=== PATIENT | female | born 1985 | race Caucasian/White ===

== ENCOUNTER → 2017-05-10 | Outpatient (CLI) | payer BC, MEDICAID ==
[~2017-05-10] MED LIST: ADVI200T PO; ANUS2.5C2 TOP; DOCU10ELUD PO; MOM30SS PO; OMEP20CA3 PO; PERCOCET PO; PRENTAB9 PO; VICO5TAB
--- NOTE | 2017-05-11 06:51 | REP ---
Clinical: Dating and viability. Technique: First trimester transabdominal obstetrical ultrasound with color Doppler evaluation. Findings: Single live early intrauterine is appreciated. Gestational sac with yolk sac and pole identified. [place]-rump length of 18 mm corresponds to 8 weeks 2 days gestational age with estimated date of delivery 12/18/2017 . heart rate equals 168 beats per minute. No gross abnormalities are identified. A small subchorionic hemorrhage is identified to the right of the gestational sac measuring 25 x 17 x 23 mm. Impression: Single live early intrauterine at 8 weeks 2 days gestational age. Complete anatomical assessment should be performed and 19-20 weeks. Small subchorionic hemorrhage. Signed by Mark Clement MD 05/11/2017 06:43 A
== END ==
LOC: M RAD 09:43
PROVIDERS: ATTEND Obstetrics & Gynecology
DX: Z36 Encounter for antenatal screening of mother (principal)

== ENCOUNTER → 2017-06-16 | Outpatient (REF) | payer BC, MEDICAID | LOC: M LAB REF 14:00 | PROVIDERS: ATTEND Advanced Practice Midwife | DX: R30.0 Dysuria (principal) ==

== ENCOUNTER 2017-07-24 11:59 | Emergency (ER) | payer BC, MEDICAID ==
[~2017-07-24] VITALS: Ht 154.9 cm; Wt 149.1 kg
[~2017-07-24 11:59] MED LIST changes: -OMEP20CA3 PO
[2017-07-24] MEDS ORDERED: NS 1,000 ML IV ONE (13:00)
[2017-07-24 13:27] LABS: BASO % 0.3 % (0.0-1.0); EOS # 0.1 10^3/uL (0.0-0.50); EOS % 1.3 % (0.0-3.0); IMMATURE GRANULOCYTE % 0.3 % (0-0); LYMPH # 1.6 10^3/uL (1.5-4.5); LYMPH % 16.2 % (24.0-44.0); MEAN CORPUSCULAR HGB CONC 32.1 g/dl (32.0-36.5); MEAN CORPUSCULAR VOLUME 84.1 fl (80.0-96.0); MONO # 0.7 10^3/uL (0.0-0.8); MONO % 7.5 % (0.0-5.0); NEUTROPHILS # 7.3 10^3/uL (1.8-7.7); NEUTROPHILS % 74.4 % (36.0-66.0); PLATELET COUNT, AUTOMATED 276 10^3/uL (150-450); RED CELL DISTRIBUTION WIDTH 14.2 % (11.5-14.5); WHITE BLOOD COUNT 9.8 10^3/uL (4.0-10.0)
[2017-07-24 13:36] LABS: INR 0.9
--- NOTE | 2017-07-24 14:21 | REP ---
LEFT LOWER EXTREMITY DUPLEX VEINS: HISTORY: Calf pain. There are no filling defects in the deep venous system. The deep venous system is patient. IMPRESSION: There is no deep venous thrombosis. Signed by Saw Eddy MD 07/24/2017 02:25 P
--- NOTE | 2017-07-24 14:46 | REP ---
CHEST, TWO VIEWS: COMPARISON: 11/01/2015 There is no evidence of acute infiltrate. No pleural effusion is seen. The heart is normal in size. The mediastinal silhouette is unremarkable. The visualized osseous structures are intact. IMPRESSION: No acute pulmonary disease. Signed by Alexis Sawyer MD 07/25/2017 07:54 P
[2017-07-24 14:57] LABS: ALBUMIN 3.5 GM/DL (3.2-5.2); ALKALINE PHOSPHATASE 68 U/L (45-117); ALT/SGPT 24 U/L (12-78); ANION GAP 9 MEQ/L (8-16); AST/SGOT 14 U/L (15-37); BILIRUBIN,DIRECT 0.1 MG/DL (0.0-0.2); BILIRUBIN,TOTAL 0.3 MG/DL (0.2-1.0); BLOOD UREA NITROGEN 12 MG/DL (7-18); CALCIUM LEVEL 8.8 MG/DL (8.5-10.1); CARBON DIOXIDE LEVEL 27 MEQ/L (21-32); CHLORIDE LEVEL 106 MEQ/L (98-107); CREATININE FOR GFR 0.64 MG/DL (0.55-1.02); GLOMERULAR FILTRATION RATE > 60.0 (>60); GLUCOSE, FASTING 87 MG/DL (70-105); POTASSIUM SERUM 4.1 MEQ/L (3.5-5.1); SODIUM LEVEL 142 MEQ/L (136-145); TOTAL PROTEIN 7.4 GM/DL (6.4-8.2)
[2017-07-24] MEDS ORDERED: OMEP20CA3 PO (15:20)
[2017-07-24 15:37] VITALS: BP 131/71
--- NOTE | 2017-07-24 18:56 | ECGEPIP ---
Stationary ECG Study [facility] - ED Test Date: 2017-07-24 Pat Name: LEONARDA TANG Department: Room: - Gender: F [employer] Systems Manager: parul : 1985 Requested By: AIDE Decker PA-C Order Number: [id number] Reading MD: Adam White Measurements Intervals [place] Rate: 86 P: 54 [place]: 177 QRS: 13 QRSD: 102 T: 30 QT: 357 QTc: 427 Interpretive Statements SINUS RHYTHM POSSIBLE INC. RBBB SIMILAR TO 11/06/15 Electronically Signed On 07-24-2017 18:56:11 EDT by Adam White
== END 2017-07-24 15:40 | disposition home or self-care (01) ==
LOC: M ED 11:59
DX: M79.662 Pain in left lower leg (principal); R06.02 Shortness of breath

== ENCOUNTER → 2017-07-27 | Outpatient (CLI) | payer BC, MEDICAID ==
[~2017-07-27] MED LIST changes: +OMEP20CA3 PO
--- NOTE | 2017-07-28 05:47 | REP ---
Clinical: Pelvic pain . Technique: Transabdominal pelvic ultrasound followed by transvaginal examination for better evaluation of the endometrium and adnexa with color Doppler evaluation of the ovaries. Findings: Bladder is unremarkable and measures 9.3 x 4.7 x 5.3 cm . Normal anteverted uterus measures 10.6 x 3.6 x 5.0 cm . The endometrial complex measures 13.0 mm thickness. No discrete uterine or endometrial abnormalities are appreciated. Bilateral ovaries are normal in appearance and vascularity without evidence for torsion. Right ovary measures 4.4 x 2.4 x 2.2 cm ; R I = 0.51 . Left ovary measures 4.0 x 2.0 x 2.6 cm ; R I = 0.53 . No pelvic fluid or adnexal mass lesion . Impression: 1. Normal pelvic ultrasound Signed by Mark Clement MD 07/28/2017 05:38 A
== END ==
LOC: M SMT 11:24
PROVIDERS: ATTEND Nurse Practitioner Women's Health
DX: R10.2 Pelvic and perineal pain (principal)

== ENCOUNTER 2017-07-29 12:38 | Emergency (ER) | payer BC, MEDICAID ==
[~2017-07-29] VITALS: Ht 154.9 cm; Wt 148.6 kg
[2017-07-29 17:14] LABS: ABG BASE EXCESS -1.7 (-2.0-2.0); ABG HCO3 21.6 MEQ/L (22.0-26.0); ABG PARTIAL PRESSURE CO2 32.5 mmHg (35.0-45.0); ABG PARTIAL PRESSURE O2 104.4 mmHg (75.0-100.0); ABG STANDARD HCO3 23.1 MEQ/L (22.0-26.0); ABG TOTAL CO2 22.6 MEQ/L (22.0-29.0); ABG pH (ARTERIAL) 7.441 UNITS (7.350-7.450)
[2017-07-29 18:06] VITALS: BP 128/61
== END 2017-07-29 18:07 | disposition home or self-care (01) ==
LOC: M ED 12:38
DX: Z71.1 Person with feared health complaint in whom no diagnosis is made (principal); F41.9 Anxiety disorder, unspecified; E66.9 Obesity, unspecified; Z79.899 Other long term (current) drug therapy; Z91.018 Allergy to other foods

== ENCOUNTER → 2017-09-12 | Outpatient (CLI) | payer BC, MEDICAID ==
[2017-09-12 18:34] LABS: ESTRADIOL 209.1 PG/ML; FOLLICLE STIMULATING HORMONE 5.6 mIU/mL; LUTEINIZING HORMONE 16.9 mIU/mL
[2017-09-13 08:19] LABS: PROGESTERONE 0.3 NG/ML
== END ==
LOC: M WUC 14:04
PROVIDERS: ATTEND Specialist
DX: N93.8 Other specified abnormal uterine and vaginal bleeding (principal)

== ENCOUNTER 2017-12-04 14:31 | Emergency (ER) | payer BC, MEDICAID ==
[2017-12-04 16:11] LABS: BASO % 0.4 % (0.0-1.0); EOS # 0.1 10^3/uL (0.0-0.50); EOS % 1.7 % (0.0-3.0); HEMATOCRIT 40.6 % (36.0-47.0); HEMOGLOBIN 13.1 g/dl (12.0-16.0); IMMATURE GRANULOCYTE % 0.4 % (0-3.0); LYMPH # 1.4 10^3/uL (1.5-4.5); LYMPH % 18.3 % (24.0-44.0); MEAN CORPUSCULAR HGB CONC 32.3 g/dl (32.0-36.5); MEAN CORPUSCULAR VOLUME 83.5 fl (80.0-96.0); MONO # 0.5 10^3/uL (0.0-0.8); MONO % 6.1 % (0.0-5.0); NEUTROPHILS # 5.6 10^3/uL (1.8-7.7); NEUTROPHILS % 73.1 % (36.0-66.0); PLATELET COUNT, AUTOMATED 276 10^3/uL (150-450); RED BLOOD COUNT 4.86 10^6/uL (4.00-5.40); RED CELL DISTRIBUTION WIDTH 14.3 % (11.5-14.5); WHITE BLOOD COUNT 7.7 10^3/uL (4.0-10.0)
[2017-12-04 16:14] LABS: KETONE, URINE AUTO RFX TRACE mg/dL (NEGATIVE); LEUKOCYTE ESTERASE UR AUTO RFX NEGATIVE (NEGATIVE); MUCUS, URINE RFX SMALL (NEGATIVE); NITRITE, URINE AUTO RFX NEGATIVE (NEGATIVE); RBC, URINE AUTO RFX 1 /HPF (0-3); SPECIFIC GRAVITY UR AUTO RFX 1.009 (1.002-1.035); SQUAM EPITHELIAL CELL UR AURFX 2 /HPF (0-6); WBC, URINE AUTO RFX 1 /HPF (0-3)
[2017-12-04 16:26] LABS: CONTROL LINE HCG INT CTR LINE PRESENT; HCG, SERUM QUALITATIVE NEGATIVE (NEGATIVE)
[2017-12-04 16:36] LABS: ALBUMIN 4.2 GM/DL (3.2-5.2); ALKALINE PHOSPHATASE 92 U/L (45-117); ALT/SGPT 21 U/L (12-78); ANION GAP 12 MEQ/L (8-16); AST/SGOT 18 U/L (7-37); BILIRUBIN,DIRECT 0.2 MG/DL (0.0-0.2); BILIRUBIN,TOTAL 0.7 MG/DL (0.2-1.0); BLOOD UREA NITROGEN 4 MG/DL (7-18); CALCIUM LEVEL 9.3 MG/DL (8.5-10.1); CARBON DIOXIDE LEVEL 24 MEQ/L (21-32); CHLORIDE LEVEL 107 MEQ/L (98-107); CREATININE FOR GFR 0.67 MG/DL (0.55-1.30); GLOMERULAR FILTRATION RATE > 60.0 (>60); GLUCOSE, FASTING 80 MG/DL (70-100); LIPASE 100 U/L (73-393); SODIUM LEVEL 143 MEQ/L (136-145); TOTAL PROTEIN 8.4 GM/DL (6.4-8.2)
== END 2017-12-04 17:32 | disposition home or self-care (01) ==
LOC: M ED 14:31
DX: R10.9 Unspecified abdominal pain (principal); R19.7 Diarrhea, unspecified; Z91.041 Radiographic dye allergy status; Z91.018 Allergy to other foods
CPT/HCPCS: 83690

== ENCOUNTER 2017-12-05 10:11 | Emergency (ER) | payer BC, MEDICAID ==
[2017-12-05 13:08] LABS: BASO % 0.2 % (0.0-1.0); EOS # 0.1 10^3/uL (0.0-0.50); EOS % 1.3 % (0.0-3.0); HEMATOCRIT 38.6 % (36.0-47.0); HEMOGLOBIN 12.6 g/dl (12.0-16.0); IMMATURE GRANULOCYTE % 0.2 % (0-3.0); LYMPH # 1.2 10^3/uL (1.5-4.5); LYMPH % 14.5 % (24.0-44.0); MEAN CORPUSCULAR HEMOGLOBIN 27.2 pg (27.0-33.0); MEAN CORPUSCULAR HGB CONC 32.6 g/dl (32.0-36.5); MEAN CORPUSCULAR VOLUME 83.4 fl (80.0-96.0); MONO # 0.6 10^3/uL (0.0-0.8); MONO % 7.3 % (0.0-5.0); NEUTROPHILS # 6.5 10^3/uL (1.8-7.7); NEUTROPHILS % 76.5 % (36.0-66.0); PLATELET COUNT, AUTOMATED 250 10^3/uL (150-450); RED BLOOD COUNT 4.63 10^6/uL (4.00-5.40); RED CELL DISTRIBUTION WIDTH 14.4 % (11.5-14.5); WHITE BLOOD COUNT 8.5 10^3/uL (4.0-10.0)
[2017-12-05 13:27] LABS: ALBUMIN 3.9 GM/DL (3.2-5.2); ALBUMIN/GLOBULIN RATIO 0.98 (1.00-1.93); ALKALINE PHOSPHATASE 86 U/L (45-117); ALT/SGPT 20 U/L (12-78); AMYLASE 29 U/L (25-115); ANION GAP 9 MEQ/L (8-16); AST/SGOT 16 U/L (7-37); BILIRUBIN,DIRECT 0.2 MG/DL (0.0-0.2); BILIRUBIN,TOTAL 0.7 MG/DL (0.2-1.0); BLOOD UREA NITROGEN 6 MG/DL (7-18); CALCIUM LEVEL 9.1 MG/DL (8.5-10.1); CARBON DIOXIDE LEVEL 26 MEQ/L (21-32); CHLORIDE LEVEL 106 MEQ/L (98-107); CREATININE FOR GFR 0.56 MG/DL (0.55-1.30); GLOMERULAR FILTRATION RATE > 60.0 (>60); GLUCOSE, FASTING 82 MG/DL (70-100); LIPASE 99 U/L (73-393); POTASSIUM SERUM 3.9 MEQ/L (3.5-5.1); SODIUM LEVEL 141 MEQ/L (136-145); TOTAL PROTEIN 7.9 GM/DL (6.4-8.2)
[2017-12-05] MEDS: READI-CAT 2 PO ×2 (15:43→16:41)
== END 2017-12-05 19:13 | disposition home or self-care (01) ==
LOC: M ED 10:11
DX: K80.70 Calculus of gallbladder and bile duct without cholecystitis without obstruction (principal); K76.89 Other specified diseases of liver; M54.5 Low back pain; Z91.041 Radiographic dye allergy status; Z91.018 Allergy to other foods
CPT/HCPCS: 76705

== ENCOUNTER → 2017-12-07 | Outpatient (CLI) | payer BC, MEDICAID ==
[2017-12-07 15:27] LABS: TOTAL 25(OH) VITAMIN D 16.8 NG/ML (30.0-100.0)
[2017-12-07 15:27] LABS: VITAMIN B12 LEVEL 627 PG/ML (247-911)
[2017-12-09 16:08] LABS: EBV VIRAL CAPSID AG IgM <36.0 U/mL (0.0-35.9)
[2017-12-09 16:08] LABS: EBV AB TO NUCLEAR ANTIGEN >600.0 U/mL (0.0-17.9); EBV VIRAL CAPSID AG IgG >600.0 U/mL (0.0-17.9)
== END ==
LOC: M WUC 12:03
DX: R20.2 Paresthesia of skin (principal); E55.9 Vitamin D deficiency, unspecified; R53.83 Other fatigue
CPT/HCPCS: 82607

== ENCOUNTER → 2018-01-09 | Outpatient (CLI) | payer BC, MEDICAID ==
[2018-01-09 19:37] LABS: ALBUMIN 3.7 GM/DL (3.2-5.2); ALBUMIN/GLOBULIN RATIO 1.03 (1.00-1.93); ALKALINE PHOSPHATASE 79 U/L (45-117); ALT/SGPT 18 U/L (12-78); ANION GAP 6 MEQ/L (8-16); AST/SGOT 14 U/L (7-37); BILIRUBIN,TOTAL 0.3 MG/DL (0.2-1.0); BLOOD UREA NITROGEN 9 MG/DL (7-18); CARBON DIOXIDE LEVEL 28 MEQ/L (21-32); CHLORIDE LEVEL 109 MEQ/L (98-107); CREATININE FOR GFR 0.58 MG/DL (0.55-1.30); FREE T4 0.96 NG/DL (0.76-1.46); GLOMERULAR FILTRATION RATE > 60.0 (>60); GLUCOSE, FASTING 77 MG/DL (70-100); POTASSIUM SERUM 3.9 MEQ/L (3.5-5.1); SODIUM LEVEL 143 MEQ/L (136-145); TOTAL PROTEIN 7.3 GM/DL (6.4-8.2)
[2018-01-09 19:38] LABS: CORTISOL BASELINE 4.9 UG/DL (4.3-22.4); PROLACTIN 6.7 NG/ML
[2018-01-09 19:39] LABS: FOLLICLE STIMULATING HORMONE 5.3 mIU/mL
[2018-01-09 21:15] LABS: ESTIMATED AVERAGE GLUCOSE 97 MG/DL (60-110)
[2018-01-12 00:06] LABS: HUMAN GROWTH HORMONE 0.5 ng/mL (0.0-10.0); SOMATOMEDIN-C INSULIN GROWTH 141 ng/mL (73-243)
[2018-01-12 00:06] LABS: ADRENOCORTICOTROPHIC HORMONE 19.7 pg/mL (7.2-63.3)
== END ==
LOC: M WUC 15:56
DX: E23.6 Other disorders of pituitary gland (principal); R53.83 Other fatigue
CPT/HCPCS: 83001

== ENCOUNTER 2018-01-18 20:20 | Emergency (ER) | payer BC, MEDICAID ==
[2018-01-18 23:03] LABS: BASO % 0.2 % (0.0-1.0); EOS # 0.2 10^3/uL (0.0-0.50); EOS % 1.8 % (0.0-3.0); HEMATOCRIT 36.5 % (36.0-47.0); HEMOGLOBIN 12.1 g/dl (12.0-15.5); IMMATURE GRANULOCYTE % 0.2 % (0-3.0); MEAN CORPUSCULAR HEMOGLOBIN 27.3 pg (27.0-33.0); MEAN CORPUSCULAR HGB CONC 33.2 g/dl (32.0-36.5); MEAN CORPUSCULAR VOLUME 82.4 fl (80.0-96.0); MONO # 0.7 10^3/uL (0.0-0.8); MONO % 7.7 % (0.0-5.0); NEUTROPHILS # 5.7 10^3/uL (1.8-7.7); NEUTROPHILS % 67.1 % (36.0-66.0); PLATELET COUNT, AUTOMATED 289 10^3/uL (150-450); RED BLOOD COUNT 4.43 10^6/uL (4.00-5.40); RED CELL DISTRIBUTION WIDTH 14.3 % (11.5-14.5); WHITE BLOOD COUNT 8.5 10^3/uL (4.0-10.0)
[2018-01-18] MEDS: ASPIRIN 81 MG CHEW TABLET PO (23:05)
[2018-01-18] MEDS: NS 500 ML IV (23:05)
[2018-01-18 23:19] LABS: CONTROL LINE HCG INT CTR LINE PRESENT; HCG, SERUM QUALITATIVE NEGATIVE (NEGATIVE); INR 0.89; PROTHROMBIN TIME 12.1 SECONDS (12.4-14.5)
[2018-01-18 23:20] LABS: PARTIAL THROMBOPLASTIN TIME 33.2 SECONDS (26.8-37.9)
[2018-01-18 23:29] LABS: ANION GAP 8 MEQ/L (8-16); BLOOD UREA NITROGEN 12 MG/DL (7-18); CARBON DIOXIDE LEVEL 25 MEQ/L (21-32); CHLORIDE LEVEL 109 MEQ/L (98-107); CK-MB VALUE MASS < 1.0 NG/ML (<3.6); CPK CREATINE PHOSPHOKINASE 59 U/L (26-192); CREATININE FOR GFR 0.62 MG/DL (0.55-1.30); GLOMERULAR FILTRATION RATE > 60.0 (>60); GLUCOSE, FASTING 88 MG/DL (70-100); MB/CK RELATIVE INDEX 1.69 (< OR =4); POTASSIUM SERUM 4.4 MEQ/L (3.5-5.1); SODIUM LEVEL 142 MEQ/L (136-145); TROPONIN I < 0.02 NG/ML (< 0.10)
[2018-01-18 23:51] LABS: D-DIMER QUANT < 270.0 ng/ml (<500)
[2018-01-19] MEDS: KETOROLAC 30 MG/ML VIAL (J1885) IV (00:45)
== END 2018-01-19 03:46 | disposition home or self-care (01) ==
LOC: M ED 01-19 03:46
DX: R07.9 Chest pain, unspecified (principal); M79.662 Pain in left lower leg; Z91.018 Allergy to other foods; Z91.041 Radiographic dye allergy status
CPT/HCPCS: 71046

== ENCOUNTER → 2018-02-07 | Outpatient (CLI) | payer BC, MEDICAID ==
[2018-02-07 19:11] LABS: ALBUMIN 3.7 GM/DL (3.2-5.2); ALBUMIN/GLOBULIN RATIO 1.06 (1.00-1.93); ALKALINE PHOSPHATASE 77 U/L (45-117); ALT/SGPT 22 U/L (12-78); ANION GAP 6 MEQ/L (8-16); AST/SGOT 17 U/L (7-37); BILIRUBIN,TOTAL 0.5 MG/DL (0.2-1.0); BLOOD UREA NITROGEN 8 MG/DL (7-18); CALCIUM LEVEL 8.8 MG/DL (8.5-10.1); CARBON DIOXIDE LEVEL 28 MEQ/L (21-32); CHLORIDE LEVEL 108 MEQ/L (98-107); CHOLESTEROL LEVEL 154 MG/DL (<200); CHOLESTEROL RISK RATIO 2.053 (<5); CREATININE FOR GFR 0.65 MG/DL (0.55-1.30); GLOMERULAR FILTRATION RATE > 60.0 (>60); GLUCOSE, FASTING 84 MG/DL (70-100); HDL CHOLESTEROL 75 MG/DL (>40); LDL CHOLESTEROL 61.8 MG/DL (<100); NON-HDL-C 79 MG/DL; POTASSIUM SERUM 4.2 MEQ/L (3.5-5.1); SODIUM LEVEL 142 MEQ/L (136-145); TOTAL PROTEIN 7.2 GM/DL (6.4-8.2); TRIGLYCERIDES LEVEL 86 MG/DL (<150)
== END ==
LOC: M WUC 11:32
DX: R07.9 Chest pain, unspecified (principal)
CPT/HCPCS: 80053